=== PATIENT | male | born 1960 | race Caucasian/White ===

== ENCOUNTER → 2019-06-01 | Emergency (ER) | payer SELFPAY ==
[~2019-06-01] VITALS: Ht 172.7 cm; Wt 75.0 kg
[~2019-06-01] MED LIST: FAMOTIDINE 20 MG TAB PO STA; KETAMINE HCL (50 MG/ML) 1ml syringe IV STA; LIDOCAINE/MYLANTA 40 ML BTL PO STA; ONDANSETRON 4 MG INJ IV STA; SOD CHLORIDE 0.9% 1,000 ML IV ONE; morphine 4 MG/ML VIAL IV STA
[2019-06-01 05:39] VITALS: Ht 172.7 cm; Wt 75.0 kg
--- NOTE | 2019-06-01 07:28 | ERD ---
ER Documentation Chief Complaint Chief Complaint ABDOMINAL PAIN HPI This is a 59-year-old male who presents to the emergency department complaining of a sudden onset of severe epigastric pain. The patient stated it was a sharp shooting pain. He states the pain is 10 out of 10 in intensity. There is no alleviating or exacerbating factors. The pain did not radiate to the back. He denies any Past medical history . He states he has never had any similar pain in the past. He denies any hemoptysis no hematemesis no melanotic stools. No chest pain or pressure. He did not take any analgesic medication prior to arrival. He denies any illicit drug use or alcohol use. ROS All systems reviewed and are negative except as per history of present illness. Medications Home Meds No Active Prescriptions or Reported Meds Allergies Allergies: Coded Allergies: No Known Allergy (Unverified , 06/01/19) PMhx/Soc Medical and Surgical Hx: Unable to obtain Hx Alcohol Use: Yes Hx Substance Use: Yes (marijuana) Hx Tobacco Use: Yes Smoking Status: Current every day smoker Physical Exam Vitals Vital Signs Date Temp Pulse Resp B/P (MAP) Pulse Ox O2 O2 Flow FiO2 Time Delivery Rate 06/01/19 67 20 164/95 100 Room Air 05:50 (118) 06/01/19 98.0 71 20 188/94 100 05:39 (125) Physical Exam Constitutional:Well-developed. Well-nourished. Patient is screaming and appears to be in a significant amount discomfort secondary to pain HEENT:Normocephalic. Atraumatic.Pupils were 4 mm equal round reactive to light. Moist mucous membranes.No tonsillar exudates. Neck: No nuchal rigidity. No lymphadenopathy. No posterior cervical spine tenderness or step-offs. Respiratory: Not using accessory muscles of respiration.Lungs were clear to auscultation bilaterally. No rhonchi. No rales. No wheezing. Cardiovascular: Regular rate regular rhythm.No murmurs. No rubs were appreciated.S1, S2 normal. Distal pulses are palpable 2+ bilaterally. GI: Abdomen was soft. Epigastric tenderness. Non Distended. No pulsatile abdominal masses or bruits. No rebound. No guarding. Bowel sounds were hypoactive Muscle skeletal: Full range of motion of both the upper and lower extremities bilaterally.Normal muscle tone.No assymetrical calf tenderness or swelling. Skin: No petechia, no purpura. No lesions on the palms or the soles of the feet. No maculopapular rash. NEURO: Patient was alert, awake, orientated x3.No facial droop. Gait observed and normal with no ataxia.Speech had regular rate and rhythm. No focal neurological deficits. PSYCH: The patient appears very agitated. He was experiencing tactile hallucinations. No visual or auditory hallucinations. No suicidal or homicidal thoughts ideations Result Diagram: 06/01/1946 06/01/1944 Results 24 hrs Laboratory Tests Test 06/01/19 05:46 06/01/19 06:15 White Blood Count 7.1 10^3/ul Red Blood Count 4.65 10^6/ul Hemoglobin 13.4 g/dl Hematocrit 40.6 % Mean Corpuscular Volume 87.3 fl Mean Corpuscular Hemoglobin 28.8 pg Mean Corpuscular Hemoglobin Concent 33.0 g/dl Red Cell Distribution Width 13.6 % Platelet Count 183 10^3/UL Mean Platelet Volume 10.3 fl Immature Granulocytes % 0.400 % Neutrophils % 47.6 % Lymphocytes % 35.4 % Monocytes % 11.8 % Eosinophils % 4.1 % Basophils % 0.7 % Nucleated Red Blood Cells % 0.0 /100WBC Immature Granulocytes # 0.030 10^3/ul Neutrophils # 3.4 10^3/ul Lymphocytes # 2.5 10^3/ul Monocytes # 0.8 10^3/ul Eosinophils # 0.3 10^3/ul Basophils # 0.1 10^3/ul Nucleated Red Blood Cells # 0.0 10^3/ul Sodium Level 143 mmol/L Potassium Level 4.1 mmol/L Chloride Level 107 mmol/L Carbon Dioxide Level 28 mmol/L Anion Gap 8 Blood Urea Nitrogen 16 mg/dl Creatinine 1.05 mg/dl Est Glomerular Filtrat Rate mL/min > 60 mL/min Glucose Level 113 mg/dl Calcium Level 9.5 mg/dl Total Bilirubin 0.8 mg/dl Direct Bilirubin 0.00 mg/dl Indirect Bilirubin 0.8 mg/dl Aspartate Amino Transf (AST/SGOT) 22 IU/L Alanine Aminotransferase (ALT/SGPT) 27 IU/L Alkaline Phosphatase 82 IU/L Total Protein 7.5 g/dl Albumin 4.1 g/dl Globulin 3.40 g/dl Albumin/Globulin Ratio 1.20 Lipase 116 U/L Ethyl Alcohol Level < 10.0 mg/dl Urine Color STRAW Urine Clarity CLEAR Urine pH 7.0 Urine Specific [place] 1.013 Urine Ketones NEGATIVE mg/dL Urine Nitrite NEGATIVE mg/dL Urine Bilirubin NEGATIVE mg/dL Urine Urobilinogen NEGATIVE mg/dL Urine Leukocyte Esterase NEGATIVE [place]/ul Urine Hemoglobin NEGATIVE mg/dL Urine Glucose NEGATIVE mg/dL Urine Total Protein NEGATIVE mg/dl Urine Opiates Screen Negative Urine Barbiturates Negative Urine Amphetamines Screen Positive Urine Benzodiazepines Screen Negative Urine Cocaine Screen Negative Urine Cannabinoids Negative Current Medications Medications Dose Sig/Rosy Start Time Status Last (Trade) Ordered Route PRN Stop Time Admin Dose Reason Admin Famotidine 20 mg ONCE STAT 06/01/19 DC 06/01/19 (Pepcid) PO 05:44 05:49 06/01/19 05:46 40 ml ONCE STAT 06/01/19 DC 06/01/19 Miscellaneous PO 05:44 05:50 Medication 06/01/19 05:46 (Gi Cocktail (2)) Sodium 1,000 ml @ Q1H ONCE 06/01/19 DC 06/01/19 Chloride 1,000 mls/hr IV 06:00 05:50 06/01/19 06:59 Morphine 4 mg ONCE STAT 06/01/19 DC 06/01/19 Sulfate IV 06:15 06:18 (morphine) 06/01/19 06:16 Ondansetron 4 mg ONCE STAT 06/01/19 DC 06/01/19 HCl (Zofran IV 06:15 06:18 Inj) 06/01/19 06:16 Ondansetron 4 mg ONCE STAT 06/01/19 DC 06/01/19 HCl (Zofran IV 06:33 06:47 Inj) 06/01/19 06:34 Ketamine 23 mg ONCE STAT 06/01/19 DC 06/01/19 HCl IV 06:33 06:47 (Ketamine 06/01/19 06:34 HCl) Procedures/MDM The patient presented to the emergency department with epigastric pain. My differential diagnosis included but was not limited to abdominal aortic aneurysm, choledocholithiasis, gallstone ileus, renal colic, pyelonephritis, pancreatitis, peptic ulcer disease, atypical myocardical infarction, mesenteric ischemia, GERD, pulmonary infarction. The patient was placed on a patient monitor, continuous pulse oximetry and IV access was established by nursing staff. The patient was given intravenous morphine and Zofran with no improvement of his symptoms. Therefore he was given ketamine. An EKG was obtained to rule out myocardial ischemia. There was no elevation of LFTs to suggest ductal obstruction, cholangitis, cholecystiitis or hepatitis. Given that the urinalysis did not show bilirubinuria, my suspicion for common duct obstruction or hepatitis was low. 12 Lead EKG tracing ordered and reviewed by myself showed: Normal sinus rhythm of 68 bpm and no arrhythmia. LA interval normal. QRS duration normal. No ST segment elevation No ST segment depression. No changes consistent with acute ischemia. The patient was complaining of a severe amount of abdominal pain. The patient was screaming and very noncompliant. Morphine did not improve his symptoms. As stated above he was given ketamine and now verbal de-escalation was able to calm the patient down. CT scan indicated there is no perforation appendicitis or other life-threatening signs or symptoms of a surgical abdomen. I did obtain a urine drug screen which was positive for amphetamines. I did feel that the patient was experiencing psychosis and after the patient remained more calm he was safely able to be discharged. The patient was discharged home in fair condition. They were instructed to return to the emergency department at any time if there was any worsening of their condition. The patient stated they would follow up with their PCP in the next 24-48 hours to initiate a suitable medication regimen under the care of their PCP as well as to allow their PCP to monitor any drug reactions. The patient was discharged home with prescriptions after they gave informed consent to the new medication. They were also fully informed by myself on the adverse effects and adverse drug interactions in order to provide adequate safeguards to prevent possible adverse reactions to medications. 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
[2019-06-01 09:15] VITALS: BP 148/79; PULSE 82; RESP 18
== END | disposition home or self-care (01) ==
LOC: E/R 05:29
DX: R10.13 Epigastric pain (principal); F17.210 Nicotine dependence, cigarettes, uncomplicated; F15.151 Other stimulant abuse with stimulant-induced psychotic disorder with hallucinations
CPT/HCPCS: 74176; 80053; 80307; 81003; 83690; 85025; 93005; J2270; J2405; J7030; 36415; 96374; 96375